=== PATIENT | female | born 1995 | race Caucasian/White ===

== ENCOUNTER → 2017-02-23 | Outpatient (CLI) | payer OTHER | END | disposition home or self-care (01) | LOC: SONOGRAMA 08:38 | DX: E04.1 Nontoxic single thyroid nodule (principal) ==

== ENCOUNTER 2018-06-24 08:21 | Outpatient (CLI) | payer OTHER | END 2018-06-24 08:22 | disposition home or self-care (01) | LOC: SONOGRAMA 08:21 | DX: E04.2 Nontoxic multinodular goiter (principal) ==

== ENCOUNTER 2023-08-31 12:28 | Inpatient (IN) | payer OTHER ==
[~2023-08-31] VITALS: Ht 152.4 cm; Wt 1.4 kg
[2023-08-31] MEDS ORDERED: MAGNESIUM SULFATE IN WATER 4 GM/100 ML PIGGYBACK IV SCH (12:45)
[2023-08-31] MEDS ORDERED: RINGERS SOLUTION,LACTATED 1,000 ML IV SCH (12:45)
[2023-08-31] MEDS ORDERED: MAGNESIUM SULFATE IN WATER 500 ML IV SCH (12:45)
[2023-08-31] MEDS ORDERED: AMPICILLIN SODIUM 2,000 MG VIAL IV ONE (12:45)
[2023-08-31] MEDS ORDERED: BETAMETHASONE ACETATE,SOD PHOS 30 MG/5 ML ML IM SCH (13:00)
[2023-08-31] MEDS ORDERED: PRENATAL CAPLE1 EAC1 (13:12)
[2023-08-31] MEDS ORDERED: SYNTHROID125 MCG PO (13:13)
[2023-08-31 13:44] LABS: HEMATOCRIT 32.2 % (36.0-45.00); HEMOGLOBIN 11.1 g/dL (12.0-15.00); MEAN CORPUSCULAR HEMOGLOBIN 31.4 pg (27.00-32.0); MEAN CORPUSCULAR HGB CONC 34.5 g/dl (32.0-36.0); PLATELET COUNT 279 K/uL (150-450); RED BLOOD COUNT 3.53 M/uL (4.00-6.00); RED CELL DISTRIBUTION WIDTH 13.8 % (11.5-14.5)
[2023-08-31 13:59] LABS: INR < 0.93; PARTIAL THROMBOPLASTIN TIME 27.4 SECONDS (22.0-34.0); PROTHROMBIN TIME 9.8 SECONDS (9.0-11.5)
[2023-08-31 14:47] LABS: ALBUMIN 2.9 gm/dL (3.4-5.0); BILIRUBIN TOTAL 0.3 mg/dL (0.3-1.2); CALCIUM 8.7 mg/dL (8.5-10.1); CREATININE SERUM 0.5 mg/dL (0.55-1.02); GFR 146.91; GLOBULINA 4.1 G/DL (2.4-3.5); POTASSIUM 4.02 mEq/L (3.5-5.1); T4 FREE 1.09 NG/ML (0.76-1.46)
[2023-08-31 14:58] LABS: TSH 0.273 uIU/mL (0.358-3.74)
[2023-08-31] MEDS ORDERED: AMPICILLIN SODIUM 1,000 MG VIAL IV SCH (17:00)
[2023-09-01] MEDS ORDERED: LEVOTHYROXINE SODIUM 125 MCG TABLET PO SCH (06:00)
[2023-09-01] MEDS ORDERED: PNV,CALCIUM 72/IRON/FOLIC ACID 1 TAB TABLET PO SCH (09:00)
[2023-09-01] MEDS ORDERED: ENOXAPARIN SODIUM 40 MG/0.4 ML SYRINGE SUBCUTANEO SCH (09:00)
[2023-09-02] MEDS ORDERED: NIFEDIPINE 30 MG TAB.SA.OSM PO SCH (09:00)
[2023-09-02] MEDS ORDERED: FAMOTIDINE/PF 20 MG/2 ML VIAL IV SCH (21:03)
[2023-09-02] MEDS ORDERED: ACETAMINOPHEN 500 MG GEL..CAP PO PRN (21:15)
[2023-09-03] MEDS ORDERED: MAGNESIUM SULFATE IN WATER 4 GM/100 ML PIGGYBACK IV ONE (05:59)
[2023-09-03] MEDS ORDERED: MAGNESIUM SULFATE IN WATER 0.04 GM/ML IV.SOLN IV ONE (05:59)
[2023-09-03] MEDS ORDERED: MAGNESIUM SULFATE IN WATER 500 ML IV SCH (06:15)
[2023-09-03] MEDS ORDERED: MAGNESIUM SULFATE IN WATER 4 GM/100 ML PIGGYBACK IV SCH (06:15)
[2023-09-04] MEDS ORDERED: MAGNESIUM SULFATE IN WATER 0.04 GM/ML IV.SOLN IV ONE (15:44)
[2023-09-05] MEDS ORDERED: MAGNESIUM SULFATE IN WATER 0.04 GM/ML IV.SOLN IV ONE ×2 (12:53→23:30)
[2023-09-07] MEDS ORDERED: TERBUTALINE SULFATE 1 MG/ML AMPUL ONE (00:46)
[2023-09-07] MEDS ORDERED: TERBUTALINE SULFATE 1 MG/ML AMPUL SUBCUTANEO ONE (01:00)
[2023-09-07] MEDS ORDERED: MAGNESIUM SULFATE IN WATER 0.04 GM/ML IV.SOLN IV ONE (04:50)
[2023-09-07 09:25] LABS: HEMOGLOBIN 11.1 g/dL (12.0-15.00); MEAN CELL VOLUME 90.6 fL (80.00-100.00); MEAN CORPUSCULAR HEMOGLOBIN 30.5 pg (27.00-32.0); MEAN CORPUSCULAR HGB CONC 33.6 g/dl (32.0-36.0); PLATELET COUNT 322 K/uL (150-450); RED BLOOD COUNT 3.64 M/uL (4.00-6.00); RED CELL DISTRIBUTION WIDTH 13.9 % (11.5-14.5)
[2023-09-07] MEDS ORDERED: AZITHROMYCIN 500 MG VIAL IV NR (16:00)
[2023-09-07] MEDS ORDERED: FAMOtidine 20 MG TABLET PO SCH (21:00)
[2023-09-08] MEDS ORDERED: SYNTHROID 125 MCG (MARCA ORIGINAL) PO SCH (06:00)
[2023-09-12] MEDS ORDERED: MAGNESIUM SULFATE IN WATER 4 GM/100 ML PIGGYBACK IV ONE (17:41)
[2023-09-12] MEDS ORDERED: MAGNESIUM SULFATE IN WATER 0.04 GM/ML IV.SOLN IV ONE (17:41)
[2023-09-12] MEDS ORDERED: MAGNESIUM SULFATE IN WATER 500 ML IV SCH (19:15)
[2023-09-12] MEDS ORDERED: MAGNESIUM SULFATE IN WATER 100 ML IV SCH (19:15)
[2023-09-13] MEDS ORDERED: MAGNESIUM SULFATE IN WATER 500 ML IV SCH ×2 (06:15→21:15)
[2023-09-13] MEDS ORDERED: NIFEDIPINE 30 MG TAB.SA.OSM PO SCH ×2 (09:54→12:07)
[2023-09-13] MEDS ORDERED: MAGNESIUM SULFATE IN WATER 100 ML IV ONE (21:15)
[2023-09-13] MEDS ORDERED: RINGERS SOLUTION,LACTATED 1,000 ML IV SCH (21:15)
[2023-09-14] MEDS ORDERED: MORPHINE SULFATE 4 MG/ML VIAL IV PRN (00:15)
[2023-09-14] MEDS ORDERED: ACETAMINOPHEN 325 MG TABLET PO PRN ×2 (04:15→06:30)
[2023-09-14] MEDS ORDERED: AMPICILLIN SODIUM 2,000 MG VIAL ONE (04:40)
[2023-09-14] MEDS ORDERED: AMPICILLIN SODIUM 2,000 MG VIAL IV ONE (05:45)
[2023-09-14 06:36] LABS: HEMATOCRIT 32.7 % (36.0-45.00); HEMOGLOBIN 11.1 g/dL (12.0-15.00); MEAN CELL VOLUME 90.2 fL (80.00-100.00); MEAN CORPUSCULAR HEMOGLOBIN 30.5 pg (27.00-32.0); MEAN CORPUSCULAR HGB CONC 33.8 g/dl (32.0-36.0); PLATELET COUNT 284 K/uL (150-450); RED BLOOD COUNT 3.62 M/uL (4.00-6.00); RED CELL DISTRIBUTION WIDTH 13.6 % (11.5-14.5)
[2023-09-14] MEDS ORDERED: CLINDAMYCIN PHOSPHATE 900 MG in DEXTROSE 5 % IN WATER 100 ML IV SCH (09:00)
[2023-09-14] MEDS ORDERED: GENTAMICIN SULFATE 40 MG/ML VIAL IV SCH (09:00)
[2023-09-14] MEDS ORDERED: MORPHINE SULFATE 4 MG/ML CARTRIDGE IV STA (09:31)
[2023-09-14] MEDS ORDERED: ERYTHROMYCIN BASE 1 GM TUBE OP ONE (09:34)
[2023-09-14] MEDS ORDERED: CHLORHEXIDINE GLUCONATE 120 ML BOTTLE TOP ONE (09:35)
[2023-09-14] MEDS ORDERED: LIDOCAINE HCL 1% 10ML VIAL ONE ×2 (09:35→09:54)
[2023-09-14] MEDS ORDERED: OXYTOCIN 20 UNITS/1000ML RL PIGGYBAG IV ONE (09:35)
[2023-09-14] MEDS ORDERED: NALOXONE HCL 0.4 MG/ML AMPUL ONE (09:52)
[2023-09-14] MEDS ORDERED: METHYLERGONOVINE MALEATE 0.2 MG/ML AMPUL ONE (10:05)
[2023-09-14] MEDS ORDERED: CHLORHEXIDINE GLUCONATE 120 ML BOTTLE TP SCH (10:15)
[2023-09-14] MEDS ORDERED: ERYTHROMYCIN BASE 1 GM TUBE OP SCH (10:15)
[2023-09-14] MEDS ORDERED: OxyCODONE HCL/APAP UD (PERCOCET) PO PRN (10:15)
[2023-09-14] MEDS ORDERED: OXYTOCIN 1,000 ML IV SCH (10:15)
[2023-09-14 10:29] LABS: ABG PH 7.332 (7.35-7.45); ABG PO2 28.9 mmHg (80-100); ABG pCO2 40.5 mmHg (35-45); BASE EXCESS -4.6 mmol/l; SaO2 48.4 %; Tco2 22.2 mmol/l
[2023-09-14 10:30] LABS: o2 21 %
[2023-09-14] MEDS ORDERED: METHYLERGONOVINE MALEATE 0.2 MG/ML AMPUL IM STA (10:40)
[2023-09-14] MEDS ORDERED: LIDOCAINE HCL 1% 10ML VIAL IJ ONE (10:45)
[2023-09-14] MEDS ORDERED: KETOROLAC TROMETHAMINE 10 MG TABLET PO SCH (12:00)
[2023-09-14] MEDS ORDERED: AMPICILLIN SODIUM 1,000 MG VIAL IV SCH (12:00)
[2023-09-14] MEDS ORDERED: MAGNESIUM SULFATE IN WATER 500 ML IV SCH (21:15)
== END 2023-09-16 13:48 | disposition home or self-care (01) | DRG 805 ==
LOC: LDR 12:28 → OB/GYN 09-14 10:29
PROVIDERS: Obstetrics & Gynecology; ADMIT Obstetrics & Gynecology Maternal & Fetal Medicine; ATTEND Obstetrics & Gynecology Maternal & Fetal Medicine
PROC: 4A1HXCZ Monitoring of Products of Conception, Cardiac Rate, External Approach (ICD-10-PCS; 2023-08-31)
PROC: BY4FZZZ Ultrasonography of Third Trimester, Single Fetus (ICD-10-PCS; 2023-09-02)
PROC: BU4CZZZ Ultrasonography of Uterus and Ovaries (ICD-10-PCS; 2023-09-02)
PROC: BY4FZZZ Ultrasonography of Third Trimester, Single Fetus (ICD-10-PCS; 2023-09-07)
PROC: BU4CZZZ Ultrasonography of Uterus and Ovaries (ICD-10-PCS; 2023-09-07)
PROC: 10E0XZZ Delivery of Products of Conception, External Approach (ICD-10-PCS; principal; 2023-09-14)
PROC: 0KQM0ZZ Repair Perineum Muscle, Open Approach (ICD-10-PCS; 2023-09-14)
PROC: 0W8NXZZ Division of Female Perineum, External Approach (ICD-10-PCS; 2023-09-14)
PROC: BY4FZZZ Ultrasonography of Third Trimester, Single Fetus (ICD-10-PCS; 2023-09-14)
PROC: BU4CZZZ Ultrasonography of Uterus and Ovaries (ICD-10-PCS; 2023-09-14)
DX: O70.1 Second degree perineal laceration during delivery (principal); O41.1230 Chorioamnionitis, third trimester, not applicable or unspecified; O60.14X0 Preterm labor third trimester with preterm delivery third trimester, not applicable or unspecified; O42.013 Preterm premature rupture of membranes, onset of labor within 24 hours of rupture, third trimester; O26.843 Uterine size-date discrepancy, third trimester; O36.8130 Decreased fetal movements, third trimester, not applicable or unspecified; Z3A.30 30 weeks gestation of pregnancy; Z37.0 Single live birth; Z20.822 Contact with and (suspected) exposure to COVID-19